=== PATIENT | male | born 1995 | race Two or more races ===

== ENCOUNTER 2016-07-26 18:30 | Emergency (ER) | payer SELFPAY ==
[~2016-07-26] VITALS: Ht 165.1 cm; Wt 59.0 kg
[2016-07-26] MEDS ORDERED: HYDROCODONE/APAP 5/325MG 1 EACH TABLET ONE (18:38)
--- NOTE | 2016-07-26 18:48 | NUR ---
patient given pain medication then walked out of er, eloped.
[2016-07-26 18:49] VITALS: BP 126/81
[2016-07-26] MEDS ORDERED: HYDROCODONE/APAP 5/325MG 1 EACH TABLET PO ONE (19:00)
== END 2016-07-26 18:49 | disposition left against medical advice (07) ==
LOC: ER 18:32
DX: M25.531 Pain in right wrist (principal); W20.8XXA Other cause of strike by thrown, projected or falling object, initial encounter; Y93.89 Activity, other specified; Y92.89 Other specified places as the place of occurrence of the external cause; Y99.8 Other external cause status
CPT/HCPCS: 99282; A4606; Z7610